=== PATIENT | male | born 1950 | race Caucasian/White ===

== ENCOUNTER → 2017-08-24 | Outpatient (CLI) | payer BC ==
--- NOTE | 2017-08-24 18:00 | Diagnostic Imaging Report ---
PROCEDURE:X-RAY ABDOMEN - KUB COMPARISON:Patients [facility], DX, ABDOMEN-1VIEW (KUB), 05/24/2017, 16:43. INDICATIONS:CALCULI OF KIDNEY FINDINGS: Tiny lower pole left renal stone appears unchanged. There are no dilated loops of bowel to suggest obstruction. There are no masses. There is no evidence of free air. No acute osseous abnormalities are present. CONCLUSION: No significant interval change in the tiny left lower pole renal stone. Jigar Soto D.O. Dictated by: Jigar Soto D.O. on 08/24/2017 at 18:00 Electronically approved by: Jigar Soto D.O. on 08/24/2017 at 18:00
== END ==
LOC: RAD 16:40
PROVIDERS: ATTEND Urology
DX: N20.0 Calculus of kidney (principal)
CPT/HCPCS: 74018